=== PATIENT | male | born 1960 | race Caucasian/White ===

== ENCOUNTER 2018-10-19 09:25 | Inpatient (IN) | payer BC, OTHER ==
[2018-10-19] MEDS ORDERED: LIDOCAINE 2% INJ 100 MG/5 ML SDV (FOR ANES.) As Ordered (09:34)
[2018-10-19] MEDS ORDERED: BUPIVACAINE/DEXTROSE 0.75% 2 ML AMP As Ordered (09:34)
[2018-10-19] MEDS ORDERED: PROPOFOL 200 MG/20 ML VIAL As Ordered ×2 (09:34)
[2018-10-19] MEDS ORDERED: fentaNYL 100 MCG/2 ML INJECTION (J3010) As Ordered ×2 (09:34→11:27)
[2018-10-19] MEDS ORDERED: MIDAZOLAM INJ 2 MG/2 ML VIAL (J2250) As Ordered ×2 (09:34→11:27)
[2018-10-19] MEDS: ceFAZolin SOD 1 GM in D5W MINI-BAG PLUS 50 ML IV ×2 (09:45→20:59)
[2018-10-19] MEDS: LR 1,000 ML IV ×3 (09:45→15:00)
[2018-10-19] MEDS: fentaNYL 100 MCG/2 ML INJECTION (J3010) IV (11:33)
[2018-10-19] MEDS: MIDAZOLAM INJ 2 MG/2 ML VIAL (J2250) IV ×2 (11:33→11:37)
[2018-10-19] MEDS ORDERED: EPINEPHrine INJ 1 MG/ML 1ML AMP (13:12)
[2018-10-19] MEDS ORDERED: ROPIvacaine 0.5% 30 ML INJECTION (J2795 PER 1MG) (13:12)
[2018-10-19] MEDS: ceFAZolin 1GM INJ (J0690 PER 500MG) As Ordered (13:14)
[2018-10-19] MEDS: EPINEPHrine INJ 1 MG/ML 1ML AMP As Ordered (13:14)
[2018-10-19] MEDS: TRANEXAMIC ACID 100 MG/ML 10ML VIAL As Ordered (13:14)
[2018-10-19] MEDS: BUPIVACAINE LIPOSOME/PF 1.3% 20ML VIAL (13.3MG/ML)(EXPAREL)(C9290 PER1MG) As Ordered (13:14)
[2018-10-19] MEDS ORDERED: MORPHINE 1MG/ML IN 0.9% NACL 100ML IV BAG As Ordered (14:19)
[2018-10-19] MEDS: MORPHINE 1MG/ML IN 0.9% NACL 100ML IV BAG IV (14:45)
[2018-10-19] MEDS ORDERED: ONDANSETRON 4MG/2ML VIAL (J2405) As Ordered (14:52)
[2018-10-19] MEDS: ONDANSETRON 4MG/2ML VIAL (J2405) IV (14:55)
[2018-10-19] MEDS ORDERED: PERCOCET 5MG/325MG TAB PO ×3 (15:00→22:45)
[2018-10-19] MEDS ORDERED: METOCLOPRAMIDE INJ 10MG/2ML VIAL (J2765) IV (15:00)
[2018-10-19] MEDS ORDERED: FLEET ENEMA PR (15:00)
[2018-10-19] MEDS ORDERED: fentaNYL 100 MCG/2 ML INJECTION (J3010) IV (15:00)
[2018-10-19] MEDS ORDERED: ACETAMINOPHEN TAB 650MG DOSE (2X325MG) PO (15:00)
[2018-10-19] MEDS ORDERED: ONDANSETRON 4MG/2ML VIAL (J2405) IV (15:15)
[2018-10-19] MEDS ORDERED: diphenhydrAMINE INJ 50MG/ML VIAL (J1200) IV (15:15)
[2018-10-19] MEDS ORDERED: NALOXONE INJ 0.4 MG/1 ML VIAL (J2310) IV (15:15)
[2018-10-19] MEDS ORDERED: NALBUPHINE HCL 10 MG/ML AMP (J2300) IV (15:15)
[2018-10-19] MEDS ORDERED: EPIDURAL/PCA KEYS XX (15:15)
[2018-10-19 16:30] LABS: HEMATOCRIT 49.7 % (42.0-52.0); HEMOGLOBIN 15.8 g/dl (13.5-17.5); MEAN CORPUSCULAR HEMOGLOBIN 30.3 pg (27.0-33.0); MEAN CORPUSCULAR HGB CONC 31.8 g/dl (32.0-36.5); MEAN CORPUSCULAR VOLUME 95.4 fl (80.0-96.0); PLATELET COUNT, AUTOMATED 154 10^3/uL (150-450); RED BLOOD COUNT 5.21 10^6/uL (4.30-6.10); RED CELL DISTRIBUTION WIDTH 12.5 % (11.5-14.5); WHITE BLOOD COUNT 10.7 10^3/uL (4.0-10.0)
[2018-10-19 17:20] LABS: ALBUMIN 3.4 GM/DL (3.2-5.2); ALBUMIN/GLOBULIN RATIO 1.03 (1.00-1.93); ALKALINE PHOSPHATASE 76 U/L (45-117); ALT/SGPT 41 U/L (12-78); ANION GAP 5 MEQ/L (8-16); AST/SGOT 23 U/L (7-37); BILIRUBIN,TOTAL 0.4 MG/DL (0.2-1.0); BLOOD UREA NITROGEN 16 MG/DL (7-18); CALCIUM LEVEL 8.7 MG/DL (8.5-10.1); CARBON DIOXIDE LEVEL 34 MEQ/L (21-32); CHLORIDE LEVEL 101 MEQ/L (98-107); CREATININE FOR GFR 0.89 MG/DL (0.70-1.30); GLOMERULAR FILTRATION RATE > 60.0 (>56); GLUCOSE, FASTING 156 MG/DL (70-100); POTASSIUM SERUM 4.3 MEQ/L (3.5-5.1); SODIUM LEVEL 140 MEQ/L (136-145); TOTAL PROTEIN 6.7 GM/DL (6.4-8.2)
[2018-10-19] MEDS ORDERED: PILL CRUSHER/CUTTER 1 EACH XX (18:30)
[2018-10-19] MEDS ORDERED: MORPHINE 4 MG/ML 1ML VIAL/SYRINGE (J2270) IV (22:45)
[2018-10-20] MEDS ORDERED: ONDANSETRON 4 MG TAB (S0181) PO ×2
[2018-10-20] MEDS: ONDANSETRON 4MG/2ML VIAL (J2405) IV (02:36)
[2018-10-20 03:05] LABS: ABG BASE EXCESS 4.1 (-2.0-2.0); ABG HCO3 34.5 MEQ/L (22.0-26.0); ABG O2 SATURATION 76.9 % (95.0-99.0); ABG STANDARD HCO3 27.5 MEQ/L (22.0-26.0); ABG TOTAL CO2 36.9 MEQ/L (22.0-29.0); ABG pH (ARTERIAL) 7.257 UNITS (7.350-7.450)
[2018-10-20 03:06] LABS: ABG PARTIAL PRESSURE CO2 79.2 mmHg (35.0-45.0); ABG PARTIAL PRESSURE O2 44.1 mmHg (75.0-100.0)
[2018-10-20] MEDS: LR 1,000 ML IV (04:12)
[2018-10-20] MEDS: ceFAZolin SOD 1 GM in D5W MINI-BAG PLUS 50 ML IV (04:12)
[2018-10-20 05:09] LABS: HEMATOCRIT 48.8 % (42.0-52.0); HEMOGLOBIN 15.2 g/dl (13.5-17.5); MEAN CORPUSCULAR HEMOGLOBIN 30.1 pg (27.0-33.0); MEAN CORPUSCULAR HGB CONC 31.1 g/dl (32.0-36.5); MEAN CORPUSCULAR VOLUME 96.6 fl (80.0-96.0); PLATELET COUNT, AUTOMATED 179 10^3/uL (150-450); RED BLOOD COUNT 5.05 10^6/uL (4.30-6.10); RED CELL DISTRIBUTION WIDTH 12.4 % (11.5-14.5); WHITE BLOOD COUNT 14.7 10^3/uL (4.0-10.0)
[2018-10-20 06:33] LABS: ABG BASE EXCESS 5.2 (-2.0-2.0); ABG HCO3 33.3 MEQ/L (22.0-26.0); ABG O2 SATURATION 96.9 % (95.0-99.0); ABG STANDARD HCO3 29.1 MEQ/L (22.0-26.0); ABG TOTAL CO2 35.3 MEQ/L (22.0-29.0); ABG pH (ARTERIAL) 7.335 UNITS (7.350-7.450)
[2018-10-20 06:35] LABS: ABG PARTIAL PRESSURE CO2 63.9 mmHg (35.0-45.0)
[2018-10-20] MEDS: ROSUVASTATIN 10 MG TAB (CRESTOR) PO (08:58)
[2018-10-20] MEDS: OMEPRAZOLE 20 MG CAP PO (08:59)
[2018-10-20] MEDS: LOSARTAN 50 MG TAB PO (08:59)
[2018-10-20] MEDS: SENOKOT S TAB PO ×2 (08:59→20:49)
[2018-10-20] MEDS: MOM 30ML SUSPENSION UDC PO (08:59)
[2018-10-20] MEDS: MIRALAX *UNIT DOSE* 17GM PACKET PO (08:59)
[2018-10-20] MEDS ORDERED: PERCOCET 5MG/325MG TAB PO (11:45)
[2018-10-20] MEDS: PERCOCET 5MG/325MG TAB PO (11:46)
[2018-10-20] MEDS ORDERED: traMADol 50 MG TAB PO (13:45)
[2018-10-20] MEDS: ACETAMINOPHEN 500 MG TAB PO ×2 (13:56→20:49)
[2018-10-20] MEDS: RIVAROXABAN 10 MG TAB (XARELTO) PO (17:14)
[2018-10-21 04:47] LABS: BASO % 0.1 % (0.0-1.0); EOS # 0.1 10^3/uL (0.0-0.50); EOS % 0.6 % (0.0-3.0); IMMATURE GRANULOCYTE % 0.2 % (0-3.0); LYMPH # 1.3 10^3/uL (1.5-4.5); LYMPH % 10.2 % (24.0-44.0); MEAN CORPUSCULAR HGB CONC 31.4 g/dl (32.0-36.5); MEAN CORPUSCULAR VOLUME 95.5 fl (80.0-96.0); MONO # 1.2 10^3/uL (0.0-0.8); MONO % 9.6 % (0.0-5.0); NEUTROPHILS # 9.9 10^3/uL (1.8-7.7); NEUTROPHILS % 79.3 % (36.0-66.0); PLATELET COUNT, AUTOMATED 149 10^3/uL (150-450); RED CELL DISTRIBUTION WIDTH 12.4 % (11.5-14.5); WHITE BLOOD COUNT 12.4 10^3/uL (4.0-10.0)
[2018-10-21 04:58] LABS: HEMOGLOBIN 13.2 g/dl (13.5-17.5)
[2018-10-21 05:08] LABS: ANION GAP 3 MEQ/L (8-16); BLOOD UREA NITROGEN 17 MG/DL (7-18); CALCIUM LEVEL 8.2 MG/DL (8.5-10.1); CARBON DIOXIDE LEVEL 36 MEQ/L (21-32); CHLORIDE LEVEL 98 MEQ/L (98-107); CREATININE FOR GFR 0.83 MG/DL (0.70-1.30); GLOMERULAR FILTRATION RATE > 60.0 (>56); GLUCOSE, FASTING 162 MG/DL (70-100); POTASSIUM SERUM 4.8 MEQ/L (3.5-5.1); SODIUM LEVEL 137 MEQ/L (136-145)
[2018-10-21] MEDS: ACETAMINOPHEN 500 MG TAB PO (06:00)
[2018-10-21 06:21] LABS: ABG BASE EXCESS 8.9 (-2.0-2.0); ABG HCO3 33.8 MEQ/L (22.0-26.0); ABG O2 SATURATION 96.5 % (95.0-99.0); ABG PARTIAL PRESSURE CO2 46.8 mmHg (35.0-45.0); ABG PARTIAL PRESSURE O2 78.1 mmHg (75.0-100.0); ABG STANDARD HCO3 32.6 MEQ/L (22.0-26.0); ABG TOTAL CO2 35.2 MEQ/L (22.0-29.0); ABG pH (ARTERIAL) 7.476 UNITS (7.350-7.450)
[2018-10-21] MEDS: ROSUVASTATIN 10 MG TAB (CRESTOR) PO (09:00)
[2018-10-21] MEDS: OMEPRAZOLE 20 MG CAP PO (09:00)
[2018-10-21] MEDS: MOM 30ML SUSPENSION UDC PO (09:00)
[2018-10-21] MEDS: MIRALAX *UNIT DOSE* 17GM PACKET PO (09:00)
[2018-10-21] MEDS: LOSARTAN 50 MG TAB PO (09:00)
[2018-10-21] MEDS: SENOKOT S TAB PO (09:00)
== END 2018-10-21 10:35 | disposition left against medical advice (07) | DRG 302 ==
LOC: M OR 09:25 → M ICU 10-20 03:54 → M MS5PR 15:25
PROC: 0SRD0J9 Replacement of Left Knee Joint with Synthetic Substitute, Cemented, Open Approach (ICD-10-PCS; principal; 2018-10-19 11:45)
DX: M17.12 Unilateral primary osteoarthritis, left knee (principal); J96.01 Acute respiratory failure with hypoxia; E66.01 Morbid (severe) obesity due to excess calories; Z68.42 Body mass index [BMI] 45.0-49.9, adult; G47.33 Obstructive sleep apnea (adult) (pediatric); E78.49 Other hyperlipidemia; K21.9 Gastro-esophageal reflux disease without esophagitis; I10 Essential (primary) hypertension; Z79.82 Long term (current) use of aspirin; Z79.899 Other long term (current) drug therapy; F11.90 Opioid use, unspecified, uncomplicated